=== PATIENT | female | born 1980 | race Caucasian/White ===

== ENCOUNTER 2017-05-02 19:34 | Emergency (ER) | payer OTHER ==
[2017-05-02] MEDS ORDERED: AZITHROMYCIN 250 MG TAB PO ONE (20:17)
[2017-05-02] MEDS ORDERED: AZITHROMYCIN 250 MG TAB ONE (20:33)
== END 2017-05-02 20:35 | disposition home or self-care (01) | DRG 153 ==
LOC: ED 19:34
DX: J01.10 Acute frontal sinusitis, unspecified (principal)
CPT/HCPCS: 99282